=== PATIENT | female | born 1995 | race Caucasian/White ===

== ENCOUNTER → 2020-09-16 08:08 | Outpatient (CLI) | payer OTHER, SELFPAY ==
[2020-09-16 08:56] LABS: COVID19 -Nasal RAPID Negative (Negative)
== END ==
PROVIDERS: Visit Provider Specialist
DX: Z01.812 Encounter for preprocedural laboratory examination (principal); Z20.822 Contact with and (suspected) exposure to COVID-19
CPT/HCPCS: 87635

== ENCOUNTER 2020-09-16 09:47 | Day surgery (SDC) | payer OTHER, SELFPAY ==
[2020-09-13 12:12] VITALS: BMI 21.7
--- NOTE | 2020-09-15 19:20 | PM.GYNHP.1 ---
History of Present Illness History of Present Illness Narrative: Valentina Miles is a 25 year old female is admitted for LEEP procedure for high-grade dysplasia of the cervix involving the entire cervix and endocervical canal. [facility] Surgical History (Updated 09/13/20 @ 12:17 by Tena Hinojosa RN) Hx of colposcopy with cervical biopsy (07/28/20) Social History Smoking Status: Never smoker Meds Home Medications and Allergies Home Medications Medication Instructions Recorded Confirmed Type norethindrone acetate 1 mg-ethinyl 1 tab PO DAILY 07/28/20 09/13/20 History estradiol 20 mcg tablet (Microgestin) Allergies Allergy/AdvReac Type Severity Reaction Status Date / Time No Known Drug Allergies Allergy Unverified 07/28/20 16:40 Review of Systems Review of Systems ROS: Yes All systems reviewed with the patient and are negative except as otherwise documented Exam Narrative Exam Narrative: HEENT exam within normal limits. Lungs are clear to auscultation percussion. Heart is regular rate and rhythm no S3-S4 murmurs. Abdomen is soft, nontender with no palpable organomegaly. Normal external genitalia, vagina, cervix. Uterus is not enlarged, nontender. No adnexal masses or tenderness. Assessment & Plan Assessment and plan (1) NIGEL III (cervical intraepithelial neoplasia grade III) with severe dysplasia: Status: Acute Assessment & Plan narrative: Patient with extensive NIGEL 3 involving all quadrants of the cervix with positive ECC for LEEP procedure
--- NOTE | 2020-09-16 | PATH_ITS ---
[facility] Accession Number: [id number] . 01 Material submitted: . PART A: cervix - EXTERNAL CERVICAL OS PART B: endocervix - ENDOCERVICAL . 02 Diagnosis: A. External Cervical Os: Patchy, circumferential involvement by high-grade squamous intraepithelial lesion/NIGEL 2-3 with gland extension and separate regions of involvement by low grade squamous intraepithelial lesion / NIGEL-1. The apparent endocervical margin is negative for dysplasia. The apparent ectocervical margin is negative for dysplasia. No invasive tumor identified. Changes consistent with previous instrumentation are present. . B. Endocervical: Endocervical tissue fragments and strips of endocervical glandular epithelium; negative for glandular dysplasia or malignancy. [facility] 09/20/2020 1759 Local . 02 Electronically signed: . Rita Sheets MD, Pathologist NPI- [id number] . 01 Gross description: . A. Received in formalin and labeled external cervical os biopsy. It consists of a 1.8 x 1.6 cm, unoriented fragment of pink-morgan, focally hemorrhagic ectocervical mucosa excised to a depth of 0.9 cm. A 0.4 cm wide slit-like os is found. The endocervical edge is inked green, the radial resection margin is inked black, and the specimen is radially sectioned. Sectioning reveals pink-morgan to white-morgan, fibrous, unremarkable cut surfaces. The specimen is submitted entirely. . Summary of sections: A1 = 12-3 o'clock, three pieces. A2 = 3-6 o'clock, three pieces. A3 = 6-9 o'clock, three pieces. A4 = 9-12 o'clock, three pieces. . B. Received in formalin and labeled endocervical curettings. It consists of a 2.5 x 1.5 x 0.4 cm aggregate of yellow-morgan to pink-morgan, ragged, diffusely congested soft tissue fragments admixed with mucosa. No distinguishing features are grossly apparent. The specimen is filtered and submitted entirely. . Summary of sections: B1 = Endocervical curettings, filtered, aggregate. ([id number]) /FRR 09/20/2020 1759 Local . 02 Pathologist provided ICD-10: D06.9, N87.1 . 02 CPT . 345938, [id number] Performed at: 01 [facility] Cytology [address] [place] [address], [place], [place] [id number] MD Donald Ayala MD Phone: [phone] Performed at: 02 [facility] [address] [place] [id number] MD Maggie Hernandez MD Phone: [phone]
[2020-09-16 10:20] VITALS: BP 136/90; PULSE 94; RESP 18; TEMP 36.8; O2SAT 99; BMI 21.7
[2020-09-16] MEDS: LACTATED RINGERS 1,000 ML 100 ML IV (10:29)
--- NOTE | 2020-09-16 10:53 | PM.PREOP ---
Pre-operative Note COVID-19 COVID-19 status: Negative Result date/Date tested (Pos, Neg/Pending): 09/16/20 Interval Note History & Physical reviewed/Exam performed by Physician: Yes Changes to H&P: No
--- NOTE | 2020-09-16 10:58 | SUR.OPER ---
Lithotomy on padded OR bed, head on pillow, arms secured on padded arm boards at <90 degrees abduction. Legs secured in padded yellow fins stirrups.
[2020-09-16] MEDS: POTASSIUM IODIDE/IODINE 473 ML SOLUTION TOP (11:16)
[2020-09-16] MEDS: FERRIC SUBSULFATE 8 GM SOLUTION 8 ML TOP (11:16)
[2020-09-16] MEDS: BUPIVACAINE 0.5% (PF) VIAL 30 ML INJ (11:17)
[2020-09-16] MEDS: EPINEPHrine 1 MG/ML 0.15 MG INJ (11:17)
[2020-09-16 11:31] VITALS: BP 107/61; PULSE 84; RESP 16; TEMP 36.9; O2SAT 100
--- NOTE | 2020-09-16 11:32 | PM.OP.1 ---
Operative Date/Time/Diagnoses Date of procedure: 09/16/20 Time of procedure: 11:32 Pre-op diagnosis: High-grade dysplasia of the cervix and endocervical canal by colpo directed biopsies for abnormal Pap smear Post-op diagnosis: same Procedure & Clinicians Procedure: LEEP Same procedure as scheduled: Yes Indications: High-grade dysplasia on cervical biopsies and ECC Surgeon: Aysha Braga Click Yes if Unassisted: Yes Anesthesia Type: General Operative Notes Findings: Normal exam under anesthesia. Circumferential nonstaining area outside of the squamocolumnar junction completely removed by the LEEP Closure Type: not applicable Specimen(s): other (LEEP and ECC) Estimated Blood Loss (mL): 1 Blood products transfused: none Procedure in detail: Patient was brought to the operating room she underwent general anesthesia. She was placed in low stirrups. A check system was reviewed with the staff in the room prior to the procedure. A coated bivalve speculum was placed into the vagina. The cervix was injected with 0.5% Marcaine with epinephrine. A single-tooth tenaculum was placed on the anterior lip of the cervix. The cervix was stained with Lugol's. The loop set at 60 W of cutting was used to remove the entire squamocolumnar junction. An ECC was performed. The tissue was cauterized external to the LEEP with ball cautery to extend the treatment zone. Monsel's was placed. The patient went to recovery room in good condition. Counts of instruments and sponges were correct. 2 specimens were sent for pathology. Complications: none Post-operative Condition: stable Disposition: same day surgery Plan for aftercare: Treatment and follow-up based on pathology report
[2020-09-16 11:37] VITALS: BP 119/59; PULSE 142; RESP 16; O2SAT 100
[2020-09-16 11:40] VITALS: BP 140/67; PULSE 113; RESP 16; O2SAT 100
[2020-09-16 11:53] VITALS: BP 141/84; PULSE 100; RESP 16; TEMP 36.7; O2SAT 98
== END 2020-09-16 12:10 | disposition home or self-care (01) ==
PROVIDERS: Referring Provider Specialist; Visit Provider Specialist
PROC: 0UBC7ZZ Excision of Cervix, Via Natural or Artificial Opening (ICD-10-PCS; CPT 57522; principal; 2020-09-16 11:15)
DX: D06.0 Carcinoma in situ of endocervix (principal); Z01.812 Encounter for preprocedural laboratory examination; Z20.822 Contact with and (suspected) exposure to COVID-19
CPT/HCPCS: 57522; 81025; 87635; A9270; J0171; J1100; J2405; J2704; J3010